=== PATIENT | male | born 1975 ===

== ENCOUNTER 2019-12-23 12:01 | Emergency (ER) | payer BC ==
--- NOTE | 2019-12-23 12:59 | Emergency Department Report ---
HPI - General Chief Complaint: Seizure Time Seen by Provider: 12/23/19 12:48 - HPI HPI: Room 6 The patient is a 43-year-old male present with a chief complaint of seizure. Patient has a history of seizures and states he has been compliant with his Kepp ra. The patient was reportedly given a presentation today when he had a generalized tonic-clonic seizure lasting approximately 4 minutes. EMS arrived on scene and states that the patient was postictal for approximately 30 minutes and was eventually convinced to come to the ED for evaluation. The patient states his last seizure before today occurred approximately 6 years ago. The patient states he feels fine and has no complaints ED Past Medical Hx - Past Medical History Previous Medical History?: Yes Hx Diabetes: Yes (IDDM) Hx Seizures: Yes - Surgical History Past Surgical History?: No - Family History Family history: no significant - Social History Smoking Status: Never Smoker Substance Use Type: None - Medications Home Medications: Home Medications Medication Instructions Recorded Confirmed Last Taken Type levETIRAcetam [Keppra TAB] 500 mg PO BID #90 tablet 12/23/19 Unknown Rx ED Review of Systems ROS: Stated complaint: SEIZURE Other details as noted in HPI Constitutional: no symptoms reported Respiratory: no symptoms reported Endocrine: no symptoms reported Gastrointestinal: denies: abdominal pain Genitourinary: denies: dysuria Musculoskeletal: denies: back pain Neurological: denies: headache Physical Exam - Physical Exam Physical Exam: GENERAL: The patient is well-developed well-nourished male sitting on stretcher not appearing to be in acute distress. [] HEENT: Normocephalic. Atraumatic. Extraocular motions are intact. Patient has moist mucous membranes. NECK: Supple. There is no axial tenderness to palpation CHEST/LUNGS: Clear to auscultation. There is no respiratory distress noted. HEART/CARDIOVASCULAR: Regular. There is no tachycardia. There is no gallop rub or murmur. ABDOMEN: Abdomen is soft, nontender. Patient has normal bowel sounds. There is no abdominal distention. SKIN: There is no rash. There is no edema. There is no diaphoresis. NEURO: The patient is awake, alert, and oriented. The patient is cooperative. The patient has no focal neurologic deficits. The patient has normal speech. Cranial nerves II through XII grossly intact MUSCULOSKELETAL: There is no evidence of acute injury. ED Medical Decision Making - Lab Data Result diagrams: 12/23/19 13:08 12/23/19 13:08 Laboratory Tests 12/23/19 12/23/19 12/23/19 13:08 13:08 13:08 WBC 10.7 RBC 5.33 H Hgb 15.3 H Hct 45.8 H MCV 86 MCH 29 MCHC 33 RDW 13.6 Plt Count 254 Lymph % (Auto) 8.7 L [place] % (Auto) 6.6 Eos % (Auto) 0.7 Baso % (Auto) 0.4 Lymph # (Auto) 0.9 L [place] # (Auto) 0.7 Eos # (Auto) 0.1 Baso # (Auto) 0.0 Seg Neutrophils % 83.6 H Seg Neutrophils # 8.9 H Sodium 132 L Potassium 4.9 Chloride 92.8 L Carbon Dioxide 24 Anion Gap 20 BUN 13 Creatinine 0.8 Estimated GFR > 60 BUN/Creatinine Ratio 16 Glucose 332 H Calcium 9.5 Magnesium 2.00 - Differential Diagnosis Seizure Critical care attestation.: If time is entered above; I have spent that time in minutes in the direct care of this critically ill patient, excluding procedure time. ED Disposition Clinical Impression: Seizure Disposition: [id number] TO HOME OR SELFCARE Is pt being admited?: No Does the pt Need Aspirin: No Condition: Stable Instructions: Epilepsy (ED) Additional Instructions: Return to the emergency department should you develop worsening symptoms, inability to tolerate food or liquids, high fever or any other concerns Prescriptions: levETIRAcetam [Keppra TAB] 500 mg PO BID #90 tablet Referrals: RON NOE MD [Staff Physician] - 3-5 Days (Dr. Noe is a neurologist. Please follow-up with him for further evaluation) Time of Disposition: 14:05
[2019-12-23] MEDS ORDERED: levETIRAcetam 1000 MG/NS 0.75% 1,000 MG/100 ML BAG IV ONE (13:03)
[2019-12-23 13:28] LABS: Basophils % (Auto) 0.4 % (0.0-1.8); Eosinophils # (Auto) 0.1 K/mm3 (0.0-0.4); Eosinophils % (Auto) 0.7 % (0.0-4.3); Hematocrit 45.8 % (35.5-45.6); Hemoglobin 15.3 gm/dl (11.8-15.2); Lymphocytes # (Auto) 0.9 K/mm3 (1.2-5.4); Lymphocytes % (Auto) 8.7 % (13.4-35.0); Mean Corpuscular HGB Conc 33 % (32-34); Mean Corpuscular Volume 86 fl (84-94); Monocytes # (Auto) 0.7 K/mm3 (0.0-0.8); Monocytes % (Auto) 6.6 % (0.0-7.3); Platelet Count 254 K/mm3 (140-440); Red Blood Count 5.33 M/mm3 (3.65-5.03); Red Cell Distribution Width 13.6 % (13.2-15.2)
[2019-12-23 13:41] LABS: BUN/Creatinine Ratio 16; Blood Urea Nitrogen 13 mg/dL (9-20); Calcium 9.5 mg/dL (8.4-10.2); Hemolysis Index 89
[2019-12-23 14:15] VITALS: BP 171/112
== END 2019-12-23 14:52 | disposition home or self-care (01) ==
LOC: ED 12:01
DX: R56.9 Unspecified convulsions (principal); E11.9 Type 2 diabetes mellitus without complications
CPT/HCPCS: 36415; 80048; 83735; 85025; 96374; 99284; J1953